=== PATIENT | female | born 1995 | race Caucasian/White ===

== ENCOUNTER 2020-09-15 15:35 | Emergency (ER) | payer OTHER ==
[~2020-09-15] VITALS: Ht 162.6 cm; Wt 49.1 kg
[2020-09-15 15:46] VITALS: BP 131/79
== END 2020-09-15 20:09 | disposition home or self-care (01) ==
LOC: ED 15:35
DX: F10.129 Alcohol abuse with intoxication, unspecified (principal)
CPT/HCPCS: J1885; J2405; J3490; J7030